=== PATIENT | female | born 1975 | race Caucasian/White ===

== ENCOUNTER → 2025-01-22 09:47 | Outpatient (REF) | payer BC, SELFPAY ==
[2025-01-22 13:39] LABS: TSH 1.81 uIU/ml (0.47-4.68)
== END ==
LOC: HWWDC 09:47
PROVIDERS: FAMILY PHYSICIAN Student in an Organized Health Care Education/Training Program
DX: Z12.31 Encounter for screening mammogram for malignant neoplasm of breast (principal); E06.3 Autoimmune thyroiditis; E03.9 Hypothyroidism, unspecified
CPT/HCPCS: 76536; 77063; 77067; 84443

== ENCOUNTER → 2025-05-07 13:39 | Outpatient (REF) | payer BC, SELFPAY | LOC: DHVS 13:39 | PROVIDERS: ATTENDING PHYSICIAN Student in an Organized Health Care Education/Training Program | DX: R25.2 Cramp and spasm (principal) | CPT/HCPCS: 93970 ==